=== PATIENT | male | born 1980 | race Caucasian/White ===

== ENCOUNTER 2016-09-12 16:21 | Emergency (ER) | payer SELFPAY | END 2016-09-12 19:40 | disposition home or self-care (01) | LOC: ER 16:21 | DX: L03.116 Cellulitis of left lower limb (principal); F17.200 Nicotine dependence, unspecified, uncomplicated; E66.9 Obesity, unspecified; Z68.42 Body mass index [BMI] 45.0-49.9, adult; Z23 Encounter for immunization | CPT/HCPCS: 36415; 90471; 96365; 96366; J3370 ==

== ENCOUNTER 2016-09-13 19:24 | Emergency (ER) | payer OTHER | END 2016-09-13 21:04 | disposition left against medical advice (07) | LOC: ER 19:24 | DX: Z53.21 Procedure and treatment not carried out due to patient leaving prior to being seen by health care provider (principal) ==